=== PATIENT | female | born 1980 | race Caucasian/White ===

== ENCOUNTER 2024-01-08 18:27 | Observation (INO) ==
[2024-01-08 19:14] LABS: Basophils # (auto) 0.05 K/uL (0.00-0.20); Basophils % (auto) 0.2 %; Eosinophils # (auto) 0.02 K/uL (0.00-0.50); Eosinophils % (auto) 0.1 %; Hemoglobin 11.8 g/dl (12.0-16.0); Immature Granulocytes # (auto) 0.12 K/uL (0.01-0.20); Immature Granulocytes % (auto) 0.5 %; Lymphocytes # (auto) 1.31 K/uL (1.20-3.40); Lymphocytes % (auto) 5.7 %; Mean Corpuscular Hemoglobin 27.2 pg (25.0-34.0); Mean Corpuscular Hgb Conc 32.8 g/dL (32.0-36.0); Mean Corpuscular Volume 82.9 fL (80.0-100.0); Mean Platelet Volume 9.6 fL (9.4-12.4); Monocytes # (auto) 1.86 K/uL (0.11-0.59); Monocytes % (auto) 8.2 %; Neutrophils # (auto) 19.44 K/uL (1.40-6.50); Neutrophils % (auto) 85.3 %; Platelet Count 387 K/uL (130-400); RDW Coefficient of Variation 15.7 % (11.5-14.5); RDW Standard Deviation 47.5 fL (36.4-46.3); Red Blood Count 4.34 M/uL (4.20-5.40)
[2024-01-08 19:32] LABS: Albumin Globulin Ratio 1.3 (0.9-2); Albumin Level 4.4 gm/dl (3.4-5.0); BUN Creatinine Ratio 21.6 (10-20); Bilirubin,Total 0.5 mg/dl (0.2-1.0); Calcium 9.9 mg/dl (8.6-10.3); Est GFR (Non-African American) 99.2 ml/min; Globulin 3.3 gm/dl (2.5-4.0); Potassium 3.8 mmol/L (3.5-5.1); Total Protein 7.7 gm/dl (6.0-8.3)
[2024-01-08 19:39] LABS: Troponin I High Sensitivity 4.4 pg/ml (0-14)
[2024-01-08 20:00] LABS: INR 0.9 (0.9-1.1); Partial Thromboplastin Ratio 1.1; Partial Thromboplastin Time 30 Seconds (21-31); Prothrombin Time 10.3 Seconds (9.0-12.0)
[2024-01-08] MEDS: ONDANSETRON INJ 2 MG/ML 2 ML VIAL IV STA (20:32)
[2024-01-08] MEDS: HYDROmorphone INJ 0.5 MG/0.5 ML SYR IV STA (20:32)
[2024-01-08] MEDS: KETOROLAC TROMETHAMINE 15 MG/ML VIAL IV ONE (20:34)
[2024-01-08] MEDS: SODIUM CHLORIDE 0.9% 500 ML IV ONE (20:53)
[2024-01-08] MEDS: OPTIRAY 320 125ml IV ONE (22:41)
[2024-01-08] MEDS: SODIUM CHLORIDE 0.9% 1,000 ML IV SCH (22:42)
[2024-01-08] MEDS: ALBUT/IPRATROP 3MG/0.5MG NEB 3 ML VIAL NEB STA (23:32)
--- NOTE | 2024-01-08 23:36 | History & Physical Report ---
Date of Service January 08, 2024 Assessment & Plan (1) Pleuritic chest pain: Plan: 43yo female presenting with severe right sided pleuritic chest pain and shortness of breath. Labs as above with leukocytosis WBC=22.8 after receiving steroids earlier today. CTA of the chest with no PE - interseptal thickening could relate to pulmonary edema or atelectasis and small right pleural effusion. Patient with several days of dry cough preceding her pain. Suspect underlying infectious process with pleurisy. Patient does meet sepsis criteria (present on admission) with tachycardia and leukocytosis. -Admit to Medical with Telemetry -Toradol 15mg IV q 6 hours as needed -Lidoderm patch -Dilaudid as needed -Incentive Spirometry - q hourly use -Empiric antibiotics for CAP - Ceftriaxone and Azithromycin -Tessalon as needed -Tylenol as needed -DuoNebs as needed -Smoking cessation counseling -Will repeat troponin with AM lab - level x 2 WNL, however, did increase from 4.4 --> 7.4. No acute ischemic changes present on EKG (2) Hypertension: Plan: Patient reports having a prior diagnosis of hypertension. She was on medications in the past but does not recall the name of it. She currently has no medical insurance or PCP and has not been taking any medication for her blood pressure. She was started on Lisinopril 10mg po daily earlier today at the [place] [facility] -Continue Lisinopril 10mg po daily -Monitor BP -Case Management consultation to provide information about obtaining medical insurance Plan Chronic Medical Conditions: GERD - chronic -Protonix 40mg po daily F/E/N - Saline lock. Electrolytes largely WNL - will repeat chemistry in AM to assess Na level, regular diet as tolerated Ppx - Lovenox for DVT prophylaxis Code - Full Dispo - Observation to medical with telemetry History of Present Illness Chief Complaint: Right sided chest pain Primary Care Provider: NO PCP Uyen Fontaine is a 43yo female with history of HTN, GERD presenting with right sided pleuritic chest pain. Patient reports having an intermittent dry cough and some SOB for the last 7 days. Last week she developed some right sided pleuritic chest pain that was intermittent and resolved on its own. This AM around 02:00 she developed acute onset of severe right sided chest pain and shortness of breath. The pain was sharp, stabbing, anterior chest with bandlike radiation around to her back. Pain is worse with coughing, deep breathing and positional changes. She reports that she is unable to lay back due to the pain. Patient was seen in the ER at [facility]. She had testing performed including two troponin assays within normal limits as well as Covid-19/RSV/Influenza testing which were NEGATIVE. She was administered DuoNebs, Prednisone, Azithromycin and started on Lisinopril for her hypertension. She was ultimately discharged home with prescriptions for Tessalon, Azithromycin, Solumedrol and Lisinopril. Patient with ongoing severe right sided pleuritic pain which prompted her to come to the ER. Patient afebrile, tachycardic, borderline saturations in the low 90s on room air - initially placed on 2L NC in the ER. ER Course: Dilaudid 0.5mg IV x 2 Zofran 4mg IV Toradol 10mg IV NSS x 500mL bolus then at 125mL/hr Albuterol 3mL neb Morphine 4mg IV Nicotine patch Allergies Allergy/AdvReac Type Severity Reaction Status Date / Time No Known Allergies Allergy Unverified 01/08/24 23:49 Home Medications Medication Instructions Recorded Confirmed Type Allergy Relief Tab 1 tab PO DAILY PRN .allergies 01/08/24 01/08/24 History albuterol sulfate 90 mcg/actuation 1 inh inhalation Q6 PRN Wheezing 01/08/24 01/08/24 History aerosol inhaler (Proventil HFA) azithromycin 500 mg tablet 500 mg PO .DAILY 3 DAYS 01/08/24 01/08/24 History benzonatate 100 mg capsule 100 mg PO TID PRN Cough 01/08/24 01/08/24 History lisinopril 10 mg tablet 10 mg PO DAILY 01/08/24 01/08/24 History methylprednisolone 4 mg tablet 4 mg PO DIRECTED 01/08/24 01/08/24 History (Medrol) omeprazole 20 mg capsule,delayed 20 mg PO DAILY 01/08/24 01/08/24 History release promethazine-DM 6.25 mg-15 mg/5 mL 5 ml PO Q6H PRN Cough 01/08/24 01/08/24 History oral syrup Past Med/Surg History Problem List (Updated 01/09/24 @ 01:31 by Mia Valdovinos DO) Pleuritic chest pain Medical History (Updated 01/09/24 @ 01:31 by Mia Valdovinos DO) GERD (gastroesophageal reflux disease) Hypertension Surgical History (Updated 01/09/24 @ 01:31 by Mia Valdovinos DO) No significant past surgical history Family History (Updated 01/09/24 @ 01:31 by Mia Valdovinos DO) Other Asthma Coronary heart disease Social History Smoking Status: Current every day smoker Tobacco Type: Cigarettes Second Hand Exposure: Yes; Hx Alcohol Use: No Hx Substance Use: No Preferred Language: Italian [employer] Required: No Beliefs That Will Affect Care: None Current Living Situation: Significant Other Feels Safe at Home: Yes Review of Systems Review of Systems: All systems reviewed & are unremarkable except as noted in HPI & below Physical Exam Physical Exam: General: patient in moderate distress secondary to pain, oriented x 4 Skin: warm, dry, intact, no rashes or lesions HEENT: NC/AT, PERRL, EOMI, anicteric sclera, conjunctiva without injection, external ear normal to inspection and nontender, nares patent, moist mucus membranes, dentition intact, no oropharyngeal lesions, neck supple, trachea midline, no LAD, no thyromegaly, no JVD Heart: +S1/S2, regular, no m/r/g Lungs: patient tachypneic, shallow breaths with visible splinting, diminished breath sounds in right mid and lower lung tapia, no rhonchi, no wheezes Abd: +BS, soft, NT/ND, no masses/organomegaly/ascites Ext: warm, 2+ pulses in UE/LE bilaterally, no clubbing/cyanosis or edema Neuro: nonfocal, patient AA&O x 4, speech intact, no facial droop, moving all extremities on command with equal strength 5/5 Results & Data Results & Data Vital Signs (Past 12 Hours) Vital Signs Temp Pulse Pulse Resp BP BP Pulse Ox 01/08/24 23:00 95 H 24 136/90 92 01/08/24 21:16 97 H 21 107/75 96 01/08/24 20:26 113 H 01/08/24 18:35 37.2 C 114 H 18 171/111 H 93 O2 Del Method 01/08/24 23:00 Room Air 01/08/24 21:16 Nasal Cannula 01/08/24 20:26 01/08/24 18:35 Room Air Laboratory Results Laboratory Results WBC 22.80 K/ul (4.8-10.8) H 01/08/24 18:58 RBC 4.34 M/uL (4.20-5.40) 01/08/24 18:58 Hgb 11.8 g/dl (12.0-16.0) L 01/08/24 18:58 Hct 36.0 % (37.0-47.0) L 01/08/24 18:58 MCV 82.9 fL (80.0-100.0) 01/08/24 18:58 MCH 27.2 pg (25.0-34.0) 01/08/24 18:58 MCHC 32.8 g/dL (32.0-36.0) 01/08/24 18:58 RDW Std Deviation 47.5 fL (36.4-46.3) H 01/08/24 18:58 RDW Coeff of Sheela 15.7 % (11.5-14.5) H 01/08/24 18:58 Plt Count 387 K/uL (130-400) 01/08/24 18:58 MPV 9.6 fL (9.4-12.4) 01/08/24 18:58 Immature Gran % (Auto) 0.5 % 01/08/24 18:58 Neut % (Auto) 85.3 % 01/08/24 18:58 Lymph % (Auto) 5.7 % 01/08/24 18:58 Irwin % (Auto) 8.2 % 01/08/24 18:58 Eos % (Auto) 0.1 % 01/08/24 18:58 Baso % (Auto) 0.2 % 01/08/24 18:58 Neut # (Auto) 19.44 K/uL (1.40-6.50) H 01/08/24 18:58 Lymph # (Auto) 1.31 K/uL (1.20-3.40) 01/08/24 18:58 Irwin # (Auto) 1.86 K/uL (0.11-0.59) H 01/08/24 18:58 Eos # (Auto) 0.02 K/uL (0.00-0.50) 01/08/24 18:58 Baso # (Auto) 0.05 K/uL (0.00-0.20) 01/08/24 18:58 Immature Gran # (Auto) 0.12 K/uL (0.01-0.20) 01/08/24 18:58 PT 10.3 Seconds (9.0-12.0) 01/08/24 18:58 INR 0.9 (0.9-1.1) 01/08/24 18:58 APTT 30 Seconds (21-31) 01/08/24 18:58 PTT Ratio 1.1 01/08/24 18:58 Sodium 134 mmol/L (136-145) L 01/08/24 18:58 Potassium 3.8 mmol/L (3.5-5.1) 01/08/24 18:58 Chloride 104 mmol/L (98-107) 01/08/24 18:58 Carbon Dioxide 21 mmol/L (21-32) 01/08/24 18:58 Anion Gap 9 (3-11) 01/08/24 18:58 BUN 16 mg/dl (6-23) 01/08/24 18:58 Creatinine 0.74 mg/dl (0.6-1.2) 01/08/24 18:58 Est Cr Clr Drug Dosing 130.0 ml/min 01/08/24 18:58 Est GFR ( Amer) 115.0 ml/min 01/08/24 18:58 Est GFR (Non-Af Amer) 99.2 ml/min 01/08/24 18:58 BUN/Creatinine Ratio 21.6 (10-20) H 01/08/24 18:58 Glucose 120 mg/dl (70-99(Fasting)) H 01/08/24 18:58 Calcium 9.9 mg/dl (8.6-10.3) 01/08/24 18:58 Phosphorus Cancelled 01/08/24 20:27 Magnesium Cancelled 01/08/24 20:27 Total Bilirubin 0.5 mg/dl (0.2-1.0) 01/08/24 18:58 AST 13 U/L (13-39) 01/08/24 18:58 ALT 15 U/L (7-52) 01/08/24 18:58 Alkaline Phosphatase 83 U/L (34-104) 01/08/24 18:58 Troponin I High Sens 7.4 pg/ml (0-14) 01/08/24 20:27 Total Protein 7.7 gm/dl (6.0-8.3) 01/08/24 18:58 Albumin 4.4 gm/dl (3.4-5.0) 01/08/24 18:58 Globulin 3.3 gm/dl (2.5-4.0) 01/08/24 18:58 Albumin/Globulin Ratio 1.3 (0.9-2) 01/08/24 18:58 Impressions Chest CTA 01/08/24 20:13 Exam(s): CTA CHEST IV Amt: 119ml optiray 320 EXAM: CT Angiography Chest With Intravenous Contrast CLINICAL HISTORY: Chest Pain. TECHNIQUE: Axial computed tomographic angiography images of the chest with intravenous contrast. MIPS images were created and reviewed. CTDI is 28. 14 mGy and DLP is 761.06 mGy-cm. Automated exposure control was utilized for the study. A dose lowering technique was utilized adhering to the principles of ALARA. MIP reconstructed images were created and reviewed. COMPARISON: No relevant prior studies available. FINDINGS: Pulmonary arteries: Unremarkable. No pulmonary embolus. Aorta: Mild atherosclerosis. No thoracic aortic aneurysm. Lungs: Interseptal thickening could relate to atelectasis and/or pulmonary edema. Bibasilar atelectasis. There is also atelectasis of the right middle lobe. No definitive consolidation. Pleural space: Small right pleural effusion. No pneumothorax. Heart: Coronary artery calcifications are present. No cardiomegaly. No significant pericardial effusion. No evidence of RV dysfunction. Bones/joints: There are degenerative changes of the spine. No acute fracture. Soft tissues: Unremarkable. Lymph nodes: Unremarkable. No enlarged lymph nodes. IMPRESSION: 1. No pulmonary embolus. 2. Interseptal thickening could relate to atelectasis and/or pulmonary edema. 3. Small right pleural effusion. Electronically signed by: Barbara Silva MD 01/09/24 00:55 AM ECG Additional Comments: EKG with ST at 116bpm, normal axis, DD=139, QRS=76, MLp=979, no prior EKG available for comparison Code Status & VTE Plan VTE Prophylaxis Plan VTE Prophylaxis will be ordered: Yes PG Care Time/CCT Total # of Minutes Spent Total Time Spent with Patient: Total time spent is greater than 50% in coordination of care (as documented) at patient's floor/unit and/or counseling patient: Coding Level of Care Code 60574 INT INP/OBS CARE MIN Diagnoses Pleuritic chest pain R07.81 Hypertension I10
--- NOTE | 2024-01-08 23:57 | Emergency Department Note ---
Impression & Plan Pleuritic chest pain ED Provider Note CHIEF COMPLAINT: Severe right-sided chest pain HISTORY OF PRESENT ILLNESS: This 43-year-old female patient with past medical history of chronic tobacco smoking, GERD, seasonal allergies presents to the emergency department with complaints of severe right-sided chest pain. She states she was evaluated in ER at an outside facility last evening. She was diagnosed with pleurisy, treated with steroids, azithromycin, Tessalon Perles and respiratory treatments. She has not had any significant fever. She states that is very painful to lie down, take a deep breath or cough. She does not recall having anything like this. REVIEW OF SYSTEMS: A review of systems was performed with positives and pertinent negatives listed in the history of present illness. 10 systems were reviewed and are otherwise negative. ALLERGIES: see below MEDICATIONS: see below PMH: see below SOCIAL HISTORY: see below DDx: Pneumonia, reactive airway disease, pleural effusion, PE, among others. PHYSICAL EXAM: Vital signs reviewed. General: Well-appearing 43 yo female, in no significant distress. HEENT: No scleral icterus, PERRLA, neck supple. moist mucous membranes Cardiovascular: Regular rate and rhythm, no extra sounds. Pulmonary: Clear to auscultation bilaterally, slightly increased work of breathing. Abdomen: Soft, nontender, nondistended, positive bowel sounds. Musculoskeletal: Atraumatic, no peripheral edema. Neurologic: Patient awake alert and oriented x 3, speech is clear Skin: Warm, dry, no rash EMERGENCY DEPARTMENT COURSE/MDM: this patient was evaluated and appeared to be in no significant distress. IV access was obtained and laboratory work was drawn. The patient was placed on the pet technologist and noted to be in a sinus tachycardia. She was hydrated with normal saline solution. EKG reveals sinus tachycardia with previous anterior septal infarct, no evidence of acute ischemia. Chest x-ray reveals a small right pleural effusion. Patient was medicated with IV Toradol, IV Dilaudid and Zofran. Patient did have some resolution of her discomfort. CT of the chest was performed and is negative for PE. Patient was informed of the findings. Laboratory work reveals a negative high-sensitivity troponin. Patient was still on some discomfort and will be evaluated by the hospitalist service for admission and further management. Patient is aware the plan and agreed. MONITORING: An order for cardiac monitoring was placed and the patient is noted to be in a normal sinus rhythm at 95 beats per minute. RADIOLOGY: chest x-ray to my interpretation reveals a small right pleural effusion, otherwise no significant focal lung consolidation. Defer to radiology. Chest CT angiogram per radiology: IMPRESSION: 1. No pulmonary embolus. 2. Interseptal thickening could relate to atelectasis and/or pulmonary edema. 3. Small right pleural effusion. EKG:To my interpretation reveals a sinus tachycardia at 116. Previous anterior septal infarct. T wave abnormality, QTc is 436. DISPOSITION: Admission Past Med/Surg History Problem List (Updated 01/14/24 @ 01:36 by Alexandra Murray MD) Acute respiratory failure with hypoxia Atelectasis of right lung GERD (gastroesophageal reflux disease) Pleuritic chest pain (Acute) Medical History (Updated 01/14/24 @ 01:36 by Alexandra Murray MD) GERD (gastroesophageal reflux disease) Hypertension Surgical History (Updated 01/09/24 @ 01:31 by Mia Valdovinos DO) No significant past surgical history Family History (Updated 01/09/24 @ 01:31 by Mia Valdovinos DO) Other Asthma Coronary heart disease Social History Smoking Status: Current every day smoker Tobacco Type: Cigarettes Second Hand Exposure: Yes; Hx Alcohol Use: No Hx Substance Use: No Preferred Language: Beninese Communication Ability: Effective Cage Shift Manager Required: No Beliefs That Will Affect Care: None Current Living Situation: Significant Other Feels Safe at Home: Yes Assistive Devices: None Allergies Allergies Allergy/AdvReac Type Severity Reaction Status Date / Time No Known Allergies Allergy Unverified 01/08/24 23:49 Home Meds Home Medications Medication Instructions Recorded Confirmed Allergy Relief Tab 1 tab PO DAILY PRN .allergies 01/08/24 01/08/24 albuterol sulfate 90 mcg/actuation 1 inh inhalation Q6 PRN Wheezing 01/08/24 01/08/24 aerosol inhaler (Proventil HFA) benzonatate 100 mg capsule 100 mg PO TID PRN Cough 01/08/24 01/08/24 lisinopril 10 mg tablet 10 mg PO DAILY 01/08/24 01/08/24 methylprednisolone 4 mg tablet 4 mg PO DIRECTED 01/08/24 01/08/24 (Medrol) omeprazole 20 mg capsule,delayed 20 mg PO DAILY 01/08/24 01/08/24 release promethazine-DM 6.25 mg-15 mg/5 mL 5 ml PO Q6H PRN Cough 01/08/24 01/08/24 oral syrup Previous Rx's Medication Instructions Recorded azithromycin 500 mg tablet 500 mg PO DAILY 5 days #5 tabs 01/11/24 metoprolol tartrate 50 mg tablet 50 mg PO BID #60 tabs 01/11/24 oxycodone 5 mg tablet 5 mg PO Q6H PRN pain #20 tabs 01/11/24 prednisone 10 mg tablet See Rx Instructions .Route 01/11/24 .COMPLEX #12 tabs Results & Data (ED) Vital Signs Vital Signs - 24 hr 01/08/24 18:35 01/08/24 20:26 01/08/24 21:16 Temperature 37.2 C Temperature Source Temporal Artery Scan Pulse Rate 114 H 113 H Pulse Rate [Apical] 97 H Respiratory Rate 18 21 Respiratory Effort / Characteristics Non-Labored Spontaneous Respiratory Depth Normal Respiratory Pattern Regular Blood Pressure 171/111 H Blood Pressure [Right Arm] 107/75 Blood Pressure Mean 131 Blood Pressure Mean [Right Arm] 85 Blood Pressure Position Sitting Pulse Oximetry 93 96 Oxygen Delivery Method Room Air Nasal Cannula Sepsis Recent Fever Within 48 Hours No Sepsis New/Unexplained Change in Mental Status No Sepsis Action Taken by Nursing No Action Required 01/08/24 23:00 Temperature Temperature Source Pulse Rate Pulse Rate [Apical] 95 H Respiratory Rate 24 Respiratory Effort / Characteristics Respiratory Depth Respiratory Pattern Blood Pressure Blood Pressure [Right Arm] 136/90 Blood Pressure Mean Blood Pressure Mean [Right Arm] 105 Blood Pressure Position Pulse Oximetry 92 Oxygen Delivery Method Room Air Sepsis Recent Fever Within 48 Hours Sepsis New/Unexplained Change in Mental Status Sepsis Action Taken by Snf Medications Current Medication List: was personally reviewed by me Laboratory Data Attestation: I reviewed the patient's lab results. 01/09/24 05:27 01/09/24 05:27 Lab Results 01/08/24 01/08/24 01/08/24 Range/Units 18:58 18:59 20:27 WBC 22.80 H (4.8-10.8) K/ul RBC 4.34 (4.20-5.40) M/uL Hgb 11.8 L (12.0-16.0) g/dl Hct 36.0 L (37.0-47.0) % MCV 82.9 (80.0-100.0) fL MCH 27.2 (25.0-34.0) pg MCHC 32.8 (32.0-36.0) g/dL RDW Std Deviation 47.5 H (36.4-46.3) fL RDW Coeff of Sheela 15.7 H (11.5-14.5) % Plt Count 387 (130-400) K/uL MPV 9.6 (9.4-12.4) fL Immature Gran % (Auto) 0.5 % Neut % (Auto) 85.3 % Lymph % (Auto) 5.7 % [place] % (Auto) 8.2 % Eos % (Auto) 0.1 % Baso % (Auto) 0.2 % Neut # (Auto) 19.44 H (1.40-6.50) K/uL Lymph # (Auto) 1.31 (1.20-3.40) K/uL [place] # (Auto) 1.86 H (0.11-0.59) K/uL Eos # (Auto) 0.02 (0.00-0.50) K/uL Baso # (Auto) 0.05 (0.00-0.20) K/uL Immature Gran # (Auto) 0.12 (0.01-0.20) K/uL PT 10.3 (9.0-12.0) Seconds INR 0.9 (0.9-1.1) APTT 30 (21-31) Seconds PTT Ratio 1.1 Sodium 134 L (136-145) mmol/L Potassium 3.8 (3.5-5.1) mmol/L Chloride 104 (98-107) mmol/L Carbon Dioxide 21 (21-32) mmol/L Anion Gap 9 (3-11) BUN 16 (6-23) mg/dl Creatinine 0.74 (0.6-1.2) mg/dl Est Cr Clr Drug Dosing 130.0 ml/min Est GFR ( Amer) 115.0 ml/min Est GFR (Non-Af Amer) 99.2 ml/min BUN/Creatinine Ratio 21.6 H (10-20) Glucose 120 H (70-99(Fasting)) mg/dl Calcium 9.9 (8.6-10.3) mg/dl Phosphorus 3.3 Cancelled (2.5-4.9) mg/dl Magnesium 1.8 Cancelled (1.7-2.4) mg/dl Total Bilirubin 0.5 (0.2-1.0) mg/dl AST 13 (13-39) U/L ALT 15 (7-52) U/L Alkaline Phosphatase 83 (34-104) U/L Troponin I High Sens 4.4 7.4 (0-14) pg/ml Total Protein 7.7 (6.0-8.3) gm/dl Albumin 4.4 (3.4-5.0) gm/dl Globulin 3.3 (2.5-4.0) gm/dl Albumin/Globulin Ratio 1.3 (0.9-2) Free T3 2.80 (2.3-4.2) pg/ml Administered Medications Discontinued Medications Albuterol (Albut/Ipratrop 3mg/0.5mg Neb 3 Ml Vial) 3 ml NEB NOW STA; Protocol Stop: 01/08/24 23:04 Last Admin: 01/08/24 23:32 Dose: 3 ml Documented By: MARCIA Albuterol (Albut/Ipratrop 3mg/0.5mg Neb 3 Ml Vial) 3 ml NEB Q4R TOVA; Protocol Stop: 02/08/24 02:59 Last Admin: 01/11/24 10:50 Dose: 3 ml Documented By: Admin: 01/11/24 07:30 Dose: 3 ml Documented By: Admin: 01/11/24 03:52 Dose: 3 ml Documented By: Admin: 01/10/24 23:22 Dose: 3 ml Documented By: Admin: 01/10/24 19:37 Dose: 3 ml Documented By: Admin: 01/10/24 14:38 Dose: 3 ml Documented By: ABReyna Admin: 01/10/24 11:33 Dose: 3 ml Documented By: ABReyna Admin: 01/10/24 07:06 Dose: 3 ml Documented By: Admin: 01/10/24 02:10 Dose: 3 ml Documented By: Admin: 01/09/24 22:41 Dose: 3 ml Documented By: Admin: 01/09/24 19:54 Dose: 3 ml Documented By: Admin: 01/09/24 14:50 Dose: 3 ml Documented By: Admin: 01/09/24 11:29 Dose: 3 ml Documented By: Admin: 01/09/24 07:14 Dose: 3 ml Documented By: Admin: 01/09/24 03:00 Dose: 3 ml Documented By: JUN Benzonatate (Benzonatate 100 Mg Capsule) 100 mg PO TID [facility] Stop: 02/08/24 08:59 Last Admin: 01/11/24 08:08 Dose: 100 mg Documented By: Admin: 01/10/24 20:27 Dose: 100 mg Documented By: Admin: 01/10/24 13:07 Dose: 100 mg Documented By: Admin: 01/10/24 08:09 Dose: 100 mg Documented By: Admin: 01/09/24 20:28 Dose: 100 mg Documented By: Admin: 01/09/24 13:04 Dose: 100 mg Documented By: Admin: 01/09/24 09:03 Dose: 100 mg Documented By: HEAVEN Enoxaparin Sodium (Enoxaparin Inj 40 Mg/0.4 Ml Syr) 40 mg SQ QAM [facility] Stop: 02/08/24 08:59 Last Admin: 01/11/24 08:01 Dose: 40 mg Documented By: Admin: 01/10/24 08:10 Dose: 40 mg Documented By: Admin: 01/09/24 09:03 Dose: 40 mg Documented By: HEAVEN Hydromorphone HCl (Hydromorphone Inj 0.5 Mg/0.5 Ml Syr) 0.5 mg IV NOW [facility] Stop: 01/08/24 20:26 Last Admin: 01/08/24 20:32 Dose: 0.5 mg Documented By: LATOYA Hydromorphone HCl (Hydromorphone Inj 0.5 Mg/0.5 Ml Syr) 0.5 mg IV Q3H PRN PRN Reason: Pain (6,7,8,9,10) Stop: 01/23/24 01:03 Last Admin: 01/11/24 08:08 Dose: 0.5 mg Documented By: Admin: 01/11/24 00:03 Dose: 0.5 mg Documented By: Admin: 01/10/24 20:23 Dose: 0.5 mg Documented By: Admin: 01/10/24 16:06 Dose: 0.5 mg Documented By: Admin: 01/10/24 10:39 Dose: 0.5 mg Documented By: Admin: 01/10/24 06:37 Dose: 0.5 mg Documented By: Admin: 01/09/24 23:47 Dose: 0.5 mg Documented By: Admin: 01/09/24 20:27 Dose: 0.5 mg Documented By: Admin: 01/09/24 15:53 Dose: 0.5 mg Documented By: Admin: 01/09/24 12:16 Dose: 0.5 mg Documented By: Admin: 01/09/24 08:59 Dose: 0.5 mg Documented By: Admin: 01/09/24 04:19 Dose: 0.5 mg Documented By: Admin: 01/09/24 01:16 Dose: 0.5 mg Documented By: SB Sodium Chloride (Nss) 500 mls @ 999 mls/hr IV .Q31M ONE Stop: 01/08/24 20:44 Last Infusion: 01/08/24 21:23 Dose: Infused Documented By: Admin: 01/08/24 20:53 Dose: 999 mls/hr Documented By: MED Sodium Chloride (Nss) 1,000 mls @ 125 mls/hr IV .Q8H [facility] Stop: 02/07/24 20:14 Last Infusion: 01/09/24 06:42 Dose: Infused Documented By: Admin: 01/08/24 22:42 Dose: 125 mls/hr Documented By: MED Cefepime HCl 2,000 mg/ Syringe 20 mls @ 5 mls/min IV NOW STA; Protocol Stop: 01/08/24 22:46 Last Admin: 01/09/24 00:14 Dose: 5 mls/min Documented By: SB Azithromycin 250 mg/ Dextrose 252.5 mls @ 125 mls/hr IV Q24H [facility] Stop: 01/16/24 08:59 Last Infusion: 01/11/24 10:16 Dose: Infused Documented By: Admin: 01/11/24 08:08 Dose: 125 mls/hr Documented By: Infusion: 01/10/24 10:52 Dose: Infused Documented By: Admin: 01/10/24 08:17 Dose: 125 mls/hr Documented By: Infusion: 01/09/24 13:08 Dose: Infused Documented By: Admin: 01/09/24 11:01 Dose: 125 mls/hr Documented By: HEAVEN Ceftriaxone Sodium (Rocephin) 2,000 mg in 50 mls @ 100 mls/hr IV Q24H [facility] Stop: 01/16/24 08:59 Last Infusion: 01/11/24 09:29 Dose: Infused Documented By: Admin: 01/11/24 08:02 Dose: 100 mls/hr Documented By: Infusion: 01/10/24 09:51 Dose: Infused Documented By: Admin: 01/10/24 08:10 Dose: 100 mls/hr Documented By: Infusion: 01/09/24 09:32 Dose: Infused Documented By: Admin: 01/09/24 09:02 Dose: 100 mls/hr Documented By: HEAVEN Methylprednisolone 60 mg/ (Syringe) 0.96 mls @ 1.5 mls/min IV Q6H [facility] Stop: 02/08/24 08:59 Last Admin: 01/11/24 08:02 Dose: 1.5 mls/min Documented By: Admin: 01/11/24 02:13 Dose: 1.5 mls/min Documented By: Admin: 01/10/24 20:28 Dose: 1.5 mls/min Documented By: Admin: 01/10/24 14:33 Dose: 1.5 mls/min Documented By: Admin: 01/10/24 08:10 Dose: 1.5 mls/min Documented By: Admin: 01/10/24 02:13 Dose: 1.5 mls/min Documented By: Admin: 01/09/24 20:29 Dose: 1.5 mls/min Documented By: Admin: 01/09/24 14:25 Dose: 1.5 mls/min Documented By: Admin: 01/09/24 09:16 Dose: 1.5 mls/min Documented By: HEAVEN Ioversol (Optiray 320 125ml) 119 ml IV ONCE ONE Stop: 01/08/24 22:42 Last Admin: 01/08/24 22:41 Dose: 119 ml Documented By: PENG Ketorolac Tromethamine (Ketorolac Tromethamine 15 Mg/Ml Vial) 10 mg IV NOW ONE Stop: 01/08/24 20:26 Last Admin: 01/08/24 20:34 Dose: 10 mg Documented By: LATOYA Ketorolac Tromethamine (Ketorolac Tromethamine 15 Mg/Ml Vial) 15 mg IV Q6H PRN PRN Reason: Pain Stop: 01/14/24 00:15 Last Admin: 01/09/24 03:04 Dose: 15 mg Documented By: MINE Labetalol HCl (Labetalol Hcl Iv 5 Mg/Ml 20ml) 5 mg IV NOW STA Stop: 01/11/24 04:37 Last Admin: 01/11/24 04:44 Dose: 5 mg Documented By: NAIF Labetalol HCl (Labetalol Hcl Iv 5 Mg/Ml 20ml) 10 mg IV NOW STA Stop: 01/11/24 05:28 Last Admin: 01/11/24 05:39 Dose: 10 mg Documented By: HAZEL Lidocaine (Lidocaine 5% 1 Patch) 1 patch TD NOW STA Stop: 01/09/24 01:19 Last Admin: 01/09/24 11:24 Dose: Not Given Documented By: HEAVEN Lisinopril (Lisinopril 10 Mg Tab) 10 mg PO [facility] Stop: 02/10/24 08:59 Last Admin: 01/11/24 09:38 Dose: 10 mg Documented By: KEO Metoprolol Tartrate (Metoprolol Tartrate 25 Mg Tab) 25 mg PO BID [facility] Stop: 02/08/24 08:59 Last Admin: 01/10/24 08:10 Dose: 25 mg Documented By: Admin: 01/09/24 20:54 Dose: 25 mg Documented By: Admin: 01/09/24 09:16 Dose: 25 mg Documented By: HEAVEN Metoprolol Tartrate (Metoprolol Tartrate 50 Mg Tab) 50 mg PO BID [facility] Stop: 02/09/24 20:59 Last Admin: 01/11/24 08:02 Dose: 50 mg Documented By: Admin: 01/10/24 20:28 Dose: 50 mg Documented By: NAIF Metoprolol Tartrate (Metoprolol Tartrate 25 Mg Tab) 25 mg PO NOW STA Stop: 01/10/24 09:40 Last Admin: 01/10/24 10:35 Dose: 25 mg Documented By: KEO Miscellaneous (Remove Nicoderm Patch) 1 each N/A DAILY@0859 [facility] Stop: 02/08/24 08:58 Last Admin: 01/11/24 08:03 Dose: 1 each Documented By: Admin: 01/10/24 08:11 Dose: 1 each Documented By: Admin: 01/09/24 09:04 Dose: 1 each Documented By: HEAVEN Miscellaneous (Remove Lidoderm Patch) 1 each N/A ONE ONE Stop: 01/09/24 13:31 Last Admin: 01/09/24 12:49 Dose: Not Given Documented By: MARIVEL Morphine Sulfate (Morphine Sulfate 4 Mg/Ml 1 Ml Carp\Vial) 4 mg IV NOW STA Stop: 01/08/24 23:27 Last Admin: 01/09/24 00:14 Dose: 4 mg Documented By: MINE Nicotine (Nicotine 14 Mg/24 Hr Patch) 1 patch TD QAM [facility] Stop: 02/08/24 01:04 Last Admin: 01/11/24 08:59 Dose: 1 patch Documented By: Admin: 01/10/24 09:34 Dose: 1 patch Documented By: Admin: 01/09/24 09:03 Dose: 1 patch Documented By: Admin: 01/09/24 01:15 Dose: 1 patch Documented By: MINE Ondansetron HCl (Ondansetron Inj 2 Mg/Ml 2 Ml Vial) 4 mg IV NOW STA Stop: 01/08/24 20:26 Last Admin: 01/08/24 20:32 Dose: 4 mg Documented By: LATOYA Pantoprazole Sodium (Pantoprazole 40 Mg Tab) 40 mg PO DAILY [facility] Stop: 02/08/24 08:59 Last Admin: 01/11/24 08:02 Dose: 40 mg Documented By: Admin: 01/10/24 08:09 Dose: 40 mg Documented By: Admin: 01/09/24 09:03 Dose: 40 mg Documented By: HEAVEN Discharge Plan Visit Data Chief Complaint: Chest Pain Stated Complaint: CHEST PAIN, RT ARM AND BACK, SOB ED Provider: Alexandra Murray Discharge Problem: Pleuritic chest pain Patient Disposition: Admitted As Inpatient Discharge Instructions Interventions: ED Discharge Assessment Last Done: 01/09/24 00:16
[2024-01-09] MEDS: MoRPHine SULFATE 4 MG/ML 1 ML CARP\\VIAL IV STA (00:14)
[2024-01-09] MEDS: CEFEPIME 2,000 MG in SYRINGE 0 ML IV STA (00:14)
[2024-01-09] MEDS ORDERED: ALBUTEROL 0.5% NEB SOLN 2.5 MG/0.5 ML VIAL NEB PRN (00:16)
[2024-01-09] MEDS ORDERED: MoRPHine SULFATE 4 MG/ML 1 ML CARP\\VIAL IV PRN (00:16)
[2024-01-09] MEDS ORDERED: MoRPHine SULFATE 2 MG/ML CARP IV PRN ×2 (00:16→12:51)
[2024-01-09] MEDS ORDERED: ONDANSETRON INJ 2 MG/ML 2 ML VIAL IV PRN (00:16)
[2024-01-09] MEDS ORDERED: ACETAMINOPHEN 325 MG TAB PO PRN (00:16)
--- NOTE | 2024-01-09 00:57 | CT Scan Report ---
Exam(s): CTA CHEST IV Amt: 119ml optiray 320 EXAM: CT Angiography Chest With Intravenous Contrast CLINICAL HISTORY: Chest Pain. TECHNIQUE: Axial computed tomographic angiography images of the chest with intravenous contrast. MIPS images were created and reviewed. CTDI is 28. 14 mGy and DLP is 761.06 mGy-cm. Automated exposure control was utilized for the study. A dose lowering technique was utilized adhering to the principles of ALARA. MIP reconstructed images were created and reviewed. COMPARISON: No relevant prior studies available. FINDINGS: Pulmonary arteries: Unremarkable. No pulmonary embolus. Aorta: Mild atherosclerosis. No thoracic aortic aneurysm. Lungs: Interseptal thickening could relate to atelectasis and/or pulmonary edema. Bibasilar atelectasis. There is also atelectasis of the right middle lobe. No definitive consolidation. Pleural space: Small right pleural effusion. No pneumothorax. Heart: Coronary artery calcifications are present. No cardiomegaly. No significant pericardial effusion. No evidence of RV dysfunction. Bones/joints: There are degenerative changes of the spine. No acute fracture. Soft tissues: Unremarkable. Lymph nodes: Unremarkable. No enlarged lymph nodes. IMPRESSION: 1. No pulmonary embolus. 2. Interseptal thickening could relate to atelectasis and/or pulmonary edema. 3. Small right pleural effusion. Electronically signed by: Barbara Silva MD 01/09/24 00:55 AM
[2024-01-09 01:01] LABS: Magnesium 1.8 mg/dl (1.7-2.4); Phosphorus 3.3 mg/dl (2.5-4.9)
[2024-01-09] MEDS ORDERED: HYDROmorphone INJ 0.5 MG/0.5 ML SYR IV PRN (01:04)
[2024-01-09] MEDS: NICOTINE 14 MG/24 HR PATCH TD SCH (01:15)
[2024-01-09] MEDS: HYDROmorphone INJ 0.5 MG/0.5 ML SYR IV PRN (01:16)
[2024-01-09] MEDS: ALBUT/IPRATROP 3MG/0.5MG NEB 3 ML VIAL NEB SCH (03:00)
[2024-01-09] MEDS: KETOROLAC TROMETHAMINE 15 MG/ML VIAL IV PRN (03:04)
[2024-01-09 06:30] LABS: Hematocrit (blood only) 32.1 % (37.0-47.0); Hemoglobin 10.4 g/dl (12.0-16.0); Mean Corpuscular Hemoglobin 27.1 pg (25.0-34.0); Mean Corpuscular Hgb Conc 32.4 g/dL (32.0-36.0); Mean Corpuscular Volume 83.6 fL (80.0-100.0); Mean Platelet Volume 10.3 fL (9.4-12.4); Platelet Count 340 K/uL (130-400); RDW Standard Deviation 48.5 fL (36.4-46.3); Red Blood Count 3.84 M/uL (4.20-5.40); White Blood Count 16.45 K/ul (4.8-10.8)
[2024-01-09 06:53] LABS: BUN Creatinine Ratio 16.4 (10-20); Calcium 8.5 mg/dl (8.6-10.3); Creatinine Clr Calc Pharmacy 75.1 ml/min; Est GFR (African American) 59.3 ml/min; Est GFR (Non-African American) 51.2 ml/min; Potassium 3.7 mmol/L (3.5-5.1)
[2024-01-09 07:06] LABS: Troponin I High Sensitivity 4.1 pg/ml (0-14)
--- NOTE | 2024-01-09 07:52 | XRay Report ---
XR chest 1V not portable CLINICAL HISTORY: Chest pain, nonspecific TECHNIQUE: Single frontal radiograph of the chest was obtained. Comparison: None available at the time of this dictation. FINDINGS: No lines and tubes are seen. The cardiomediastinal silhouette is normal. The lungs are clear. Small r ight pleural effusion. IMPRESSION: Small right pleural effusion. ACT 112: Negative or not required by law. Electronically signed by: Efrem Meadows M.D. 01/09/2024 7:51 AM
[2024-01-09] MEDS ORDERED: lisinopril 10 MG TAB PO SCH (09:00)
[2024-01-09] MEDS ORDERED: NICOTINE 14 MG/24 HR PATCH TD SCH (09:00)
[2024-01-09] MEDS ORDERED: methylPREDNISolone 10 mg/mL (For Ped Dose < 7mg) IV SCH (09:00)
[2024-01-09] MEDS: cefTRIAXone SODIUM 2,000 MG/50 ML BAG IV SCH (09:02)
[2024-01-09] MEDS: BENZONATATE 100 MG CAPSULE PO SCH (09:03)
[2024-01-09] MEDS: ENOXAPARIN INJ 40 MG/0.4 ML SYR SQ SCH (09:03)
[2024-01-09] MEDS: PANTOprazole 40 MG TAB PO SCH (09:03)
[2024-01-09] MEDS: METOPROLOL TARTRATE 25 MG TAB PO SCH (09:16)
[2024-01-09] MEDS: methylPREDNISolone 60 MG in SYRINGE 0 ML IV SCH (09:16)
[2024-01-09 09:50] LABS: T4 Free Thyroxine 0.87 ng/dl (0.61-1.60)
[2024-01-09] MEDS: AZITHROMYCIN 250 MG in DEXTROSE 5% 250 ML IV SCH (11:01)
[2024-01-09] MEDS: LIDOCAINE 5% 1 PATCH TD STA (11:24)
--- NOTE | 2024-01-09 13:07 | Hospitalist Progress Note ---
Date of Service January 09, 2024 Assessment & Plan (1) Pleuritic chest pain: Plan: Due to suspected viral illness. She is now on parenteral steroid therapy. Morphine IV as needed for chest pain. No acute EKG changes and troponins are negative x 2 so far. Admission chest CTA negative for PE. (2) Hypertension: Plan: And sinus tachycardia. Lisinopril switched to metoprolol. Continue telemetry. Thyroid profile is unremarkable (3) GERD (gastroesophageal reflux disease): Plan: Stable. Continue PPI therapy Plan Hopefully home tomorrow, January 09, on metoprolol and a tapering dose of prednisone Admission and Anticipated Discharge Date Admission Date: January 08, 2024 Subjective Alert and oriented. No distress. She appears to have a viral illness causing pleuritic chest pain. No acute EKG changes and troponin levels negative x 2. Thyroid status is unremarkable. She presented with sinus tachycardia and elevated blood pressure. Lisinopril has been switched to metoprolol. She is now on parenteral methylprednisolone. Review of Systems 2 Review of Systems: Constitutional-no fever or chills ENT-no blurred vision, no double vision, no epistaxis, no sore throat Respiratory-no cough, no wheezing, no shortness of breath. Inspiratory sharp right-sided chest pain Cardiac-no palpitations, no chest pain, no syncope GI-no nausea, vomiting, diarrhea, melena, hematochezia -no urinary retention, no urinary incontinence, no dysuria, no hematuria Musculoskeletal-no joint pain, no muscle tenderness Skin-no bruising, no rashes, no pruritus Neuro-no isolated weakness, no paresthesia, no weakness Psych-no depression, no anxiety Physical Exam 2 Physical Exam: General-alert and oriented x3, no fever, no chills HEENT-head atraumatic and normocephalic, pupils equal and reactive to light, extraocular muscles intact Neck-no lymphadenopathy or thyromegaly, trachea midline Chest-clear to auscultation. No rales, wheezing or rhonchi Cardiac-regular rate and rhythm, normal S1 and S2 Abdomen-normal bowel sounds, no hepatosplenomegaly Extremities-no cyanosis, clubbing, or edema Neuro-cranial nerves II through XII intact, motor and sensory function within normal limits, strength symmetrical, no focal deficits Psych-normal affect, normal mood Results & Data Results & Data Vital Signs (Past 12 Hours) Vital Signs Pulse Pulse Resp BP Pulse Ox O2 Del Method O2 Flow Rate 01/09/24 11:59 79 20 162/90 H 93 Nasal Cannula 2 01/09/24 11:29 85 21 92 Nasal Cannula 2 01/09/24 09:21 94 H 24 162/90 H 92 Nasal Cannula 2 01/09/24 09:10 Nasal Cannula 2 01/09/24 07:14 90 20 93 Room Air 01/09/24 07:02 86 01/09/24 03:02 93 H 14 96 Room Air Laboratory Results 01/09/24 05:27 01/09/24 05:27 PG Care Time/CCT Total # of Minutes Spent Total Time Spent with Patient: Total time spent is greater than 50% in coordination of care (as documented) at patient's floor/unit and/or counseling patient: Coding Level of Care Code 67406 SUB INP/OBS CARE 3/50MIN Diagnoses Pleuritic chest pain R07.81 Hypertension I10 GERD (gastroesophageal reflux disease) K21.9
--- NOTE | 2024-01-09 22:48 | Electrocardiogram Report ---
Test Reason : Blood Pressure : / mmHG Vent. Rate : 116 BPM Atrial Rate : 116 BPM P-R Int : 140 ms QRS Dur : 076 ms QT Int : 314 ms P-R-T Axes : 029 018 024 degrees QTc Int : 436 ms Sinus tachycardia Anteroseptal infarct , age undetermined Nonspecific T wave abnormality Abnormal ECG No previous ECGs available Confirmed by Leroy Hester ([id number]) on 01/09/2024 10:47:36 PM Referred By: REFERRED SELF Confirmed By:Leroy Hester
--- NOTE | 2024-01-10 10:12 | XRay Report ---
XR chest 2V PA/lateral CLINICAL HISTORY: hypoxia TECHNIQUE: 2 views of the chest were obtained. Comparison: Comparison is made to chest radiograph 01/08/2024 FINDINGS: No lines and tubes are seen. The cardiomediastinal silhouette is normal. Atelectasis is seen in the b ilateral lungs. Small right pleural effusion. IMPRESSION: Redemonstration of atelectasis and small right pleural effusion. ACT 112: Negative or not required by law. Electronically signed by: Efrem Meadows M.D. 01/10/2024 10:11 AM
[2024-01-10] MEDS: METOPROLOL TARTRATE 25 MG TAB PO STA (10:35)
--- NOTE | 2024-01-10 12:02 | Hospitalist Progress Note ---
Date of Service January 10, 2024 Assessment & Plan (1) Pleuritic chest pain: Plan: Due to suspected viral illness. Much improved with parenteral steroid therapy. Morphine IV as needed for chest pain. No acute EKG changes and troponins are negative. Chest CTA negative for PE. (2) Hypertension: Plan: And sinus tachycardia. Lisinopril switched to metoprolol. Metoprolol dosage uptitrated today, January 09. Continue telemetry. Thyroid profile is unremarkable (3) GERD (gastroesophageal reflux disease): Plan: Stable. Continue PPI therapy (4) Atelectasis of right lung: Plan: Incentive spirometry ordered (5) Acute respiratory failure with hypoxia: Plan: Currently on 2 L of oxygen per nasal cannula to maintain saturation greater than 90%. Treat underlying right lower lobe atelectasis. Wean off as tolerated Plan Admitted from observation status. Hopefully home within the next 24 to 48 hours. Admission and Anticipated Discharge Date Admission Date: January 08, 2024 Subjective Feeling better overall. However, she is now requiring oxygen. Repeat chest x- ray reveals right lower lobe atelectasis. Incentive spirometry has been ordered. She has occasional productive cough but no purulence. Her pleuritic type chest discomfort has improved considerably with the use of intravenous Solu-Medrol. She remains on Rocephin and azithromycin for now. Metoprolol dosage uptitrated today, January 09, for better heart rate and blood pressure control. Review of Systems 2 Review of Systems: Constitutional-no fever or chills ENT-no blurred vision, no double vision, no epistaxis, no sore throat Respiratory-occasional cough with occasional production of nonpurulent appearing sputum. No hemoptysis. She does have shortness of breath with exertion. Inspiratory sharp right-sided chest pain has improved considerably Cardiac-no palpitations, no chest pain, no syncope GI-no nausea, vomiting, diarrhea, melena, hematochezia -no urinary retention, no urinary incontinence, no dysuria, no hematuria Musculoskeletal-no joint pain, no muscle tenderness Skin-no bruising, no rashes, no pruritus Neuro-no isolated weakness, no paresthesia, no weakness Psych-no depression, no anxiety Physical Exam 2 Physical Exam: General-alert and oriented x3, no fever, no chills HEENT-head atraumatic and normocephalic, pupils equal and reactive to light, extraocular muscles intact Neck-no lymphadenopathy or thyromegaly, trachea midline Chest-diminished breath sounds at the right base. No inspiratory rales or audible wheezing. Cardiac-regular rate and rhythm, normal S1 and S2 Abdomen-normal bowel sounds, no hepatosplenomegaly Extremities-no cyanosis, clubbing, or edema Neuro-cranial nerves II through XII intact, motor and sensory function within normal limits, strength symmetrical, no focal deficits Psych-normal affect, normal mood Results & Data Results & Data Vital Signs (Past 12 Hours) Vital Signs Temp Pulse Pulse Resp BP Pulse Ox O2 Del Method 01/10/24 11:34 94 H 18 96 Nasal Cannula 01/10/24 11:09 36.7 C 92 H 18 154/89 H 93 Nasal Cannula 01/10/24 10:37 162/99 H 01/10/24 07:42 36.6 C 107 H 18 150/92 H 92 Nasal Cannula 01/10/24 07:08 98 H 01/10/24 07:06 105 H 20 91 Nasal Cannula 01/10/24 04:00 36.7 C 106 H 18 146/69 H 93 Room Air 01/10/24 02:11 107 H 16 89 L Nasal Cannula 01/10/24 00:00 115 H O2 Flow Rate 01/10/24 11:34 2 01/10/24 11:09 4 01/10/24 10:37 01/10/24 07:42 4 01/10/24 07:08 01/10/24 07:06 3 01/10/24 04:00 01/10/24 02:11 2 01/10/24 00:00 Laboratory Results 01/09/24 05:27 01/09/24 05:27 PG Care Time/CCT Total # of Minutes Spent Total Time Spent with Patient: Total time spent is greater than 50% in coordination of care (as documented) at patient's floor/unit and/or counseling patient: Coding Level of Care Code 35928 SUB INP/OBS CARE 3/50MIN Diagnoses Pleuritic chest pain R07.81 Hypertension I10 GERD (gastroesophageal reflux disease) K21.9 Atelectasis of right lung J98.11 Acute respiratory failure with hypoxia J96.01
[2024-01-10] MEDS: METOPROLOL TARTRATE 50 MG TAB PO SCH (20:28)
[2024-01-11] MEDS: LABETALOL HCL IV 5 MG/ML 20ML IV STA ×2 (04:44→05:39)
[2024-01-11] MEDS: lisinopril 10 MG TAB PO SCH (09:38)
--- NOTE | 2024-01-11 10:01 | Discharge Summary ---
Discharge Summary Date of Service January 11, 2024 Principal Dx & Hospital Course #1 = Principal Diagnosis (1) Pleuritic chest pain: Due to suspected viral illness. Much improved with parenteral steroid therapy. Will discharge on a prednisone tapering dose. She was given morphine IV as needed for chest pain while hospitalized. No acute EKG changes and troponins are negative. Chest CTA negative for PE. (2) Hypertension: And sinus tachycardia. Lisinopril was restarted today, January 10. She is also on metoprolol now. Thyroid profile is unremarkable (3) GERD (gastroesophageal reflux disease): Stable. Continue PPI therapy (4) Atelectasis of right lung: Improved with incentive spirometry (5) Acute respiratory failure with hypoxia: Resolved. Now on room air. Continue incentive spirometry for the next week or 2 for right lower lobe atelectasis. Plan Home today, January 10. She may return to work on January 18 Admission HPI Per Admitting Provider Uyen Fontaine is a 43yo female with history of HTN, GERD presenting with right sided pleuritic chest pain. Patient reports having an intermittent dry cough and some SOB for the last 7 days. Last week she developed some right sided pleuritic chest pain that was intermittent and resolved on its own. This AM around 02:00 she developed acute onset of severe right sided chest pain and shortness of breath. The pain was sharp, stabbing, anterior chest with bandlike radiation around to her back. Pain is worse with coughing, deep breathing and positional changes. She reports that she is unable to lay back due to the pain. Patient was seen in the ER at [facility]. She had testing performed including two troponin assays within normal limits as well as Covid-19/RSV/Influenza testing which were NEGATIVE. She was administered DuoNebs, Prednisone, Azithromycin and started on Lisinopril for her hypertension. She was ultimately discharged home with prescriptions for Tessalon, Azithromycin, Solumedrol and Lisinopril. Patient with ongoing severe right sided pleuritic pain which prompted her to come to the ER. Patient afebrile, tachycardic, borderline saturations in the low 90s on room air - initially placed on 2L NC in the ER. ER Course: Dilaudid 0.5mg IV x 2 Zofran 4mg IV Toradol 10mg IV NSS x 500mL bolus then at 125mL/hr Albuterol 3mL neb Morphine 4mg IV Nicotine patch Discharge Exam General-alert and oriented x3, no fever, no chills HEENT-head atraumatic and normocephalic, pupils equal and reactive to light, extraocular muscles intact Neck-no lymphadenopathy or thyromegaly, trachea midline Chest-diminished breath sounds at the right base. No inspiratory rales or audible wheezing. Cardiac-regular rate and rhythm, normal S1 and S2 Abdomen-normal bowel sounds, no hepatosplenomegaly Extremities-no cyanosis, clubbing, or edema Neuro-cranial nerves II through XII intact, motor and sensory function within normal limits, strength symmetrical, no focal deficits Psych-normal affect, normal mood Updated Medication List Medication Instructions Recorded Confirmed Type Allergy Relief Tab 1 tab PO DAILY PRN .allergies 01/08/24 01/08/24 History albuterol sulfate 90 mcg/actuation 1 inh inhalation Q6 PRN Wheezing 01/08/24 01/08/24 History aerosol inhaler (Proventil HFA) azithromycin 500 mg tablet 500 mg PO .DAILY 3 DAYS 01/08/24 01/08/24 History benzonatate 100 mg capsule 100 mg PO TID PRN Cough 01/08/24 01/08/24 History lisinopril 10 mg tablet 10 mg PO DAILY 01/08/24 01/08/24 History methylprednisolone 4 mg tablet 4 mg PO DIRECTED 01/08/24 01/08/24 History (Medrol) omeprazole 20 mg capsule,delayed 20 mg PO DAILY 01/08/24 01/08/24 History release promethazine-DM 6.25 mg-15 mg/5 mL 5 ml PO Q6H PRN Cough 01/08/24 01/08/24 History oral syrup azithromycin 500 mg tablet 500 mg PO DAILY 5 days #5 tabs 01/11/24 Rx metoprolol tartrate 50 mg tablet 50 mg PO BID #60 tabs 01/11/24 Rx prednisone 10 mg tablet See Rx Instructions .Route 01/11/24 Rx .COMPLEX #12 tabs Hospital Stay Data Consultations 01/08/24 23:02 ED Decision to Admit Stat Diagnostic Imagining Performed 01/08/24 20:13 CT angio chest PE protocol Stat Pending Results Patient Have Any Pending Studies at Discharge: No Discharge Instructions Given to Patient (Per Discharging Provider) Take prednisone in a tapering dose fashion as directed. Take azithromycin daily for 5 more days. Metoprolol is new for blood pressure control along with lisinopril. Total Time Total Time Spent Total Time Spent (In Minutes): 45 minutes Coding Level of Care Code 88861 INP/OBS DISCH >30 MIN Diagnoses Pleuritic chest pain R07.81 Hypertension I10 GERD (gastroesophageal reflux disease) K21.9 Atelectasis of right lung J98.11 Acute respiratory failure with hypoxia J96.01
== END 2024-01-11 12:09 | disposition home or self-care (01) ==
LOC: EDINP 18:27 → ED 18:27 → SUATTDRO 23:35 → EDINP 01-09 00:16 → 2N 01-09 18:22